=== PATIENT | male | born 1980 | race Caucasian/White ===

== ENCOUNTER 2022-11-20 18:43 | Emergency (ER) | payer BC, SELFPAY ==
[2022-11-20 18:50] VITALS: BP 158/84; PULSE 75; RESP 16; TEMP 36; O2SAT 96
--- NOTE | 2022-11-20 18:55 | ED.URI ---
HPI - URI/Sore Throat General Chief Complaint: Upper Respiratory Infection Stated Complaint: sore throat Time Seen by Provider: 11/20/22 18:50 Source: patient and RN notes reviewed History of Present Illness HPI Narrative: Patient is a 42-year-old male who presents to urgent care with complaints of a sore throat that started last night. Patient denies any fever, nausea, vomiting, headache or other upper respiratory complaints. States that his daughter was diagnosed on Friday. No other acute complaints. Patient has not taken anything [id number] for his symptoms. No acute distress noted. Patient aware of the plan of care. Some parts of this dictation were generated by voice recognition software and may contain typographical and/or grammatical inaccuracies. Related Data Home Medications Medication Instructions Recorded Confirmed No Home Medications 11/20/22 11/20/22 Allergies Allergy/AdvReac Type Severity Reaction Status Date / Time Penicillins Allergy Rash Verified 11/20/22 18:56 Review of Systems Review of Systems: CONSTITUTIONAL: Denies fever, chills, or sweats. EYES: Denies visual changes, redness, or discharge. ENT: Denies rhinorrhea, congestion,. Reports of sore throat CARDIOVASCULAR: Denies chest pain, palpitations, or edema. RESPIRATORY: Denies cough or dyspnea. GASTROINTESTINAL: Denies abdominal pain, nausea, vomiting, or diarrhea. GENITOURINARY: Denies dysuria or hematuria. SKIN: Denies rash or itching. MUSCULOSKELETAL: Denies back pain, joint pain, or myalgia. NEUROLOGIC: Denies headache, numbness, or weakness. All other systems reviewed are negative, except as documented in HPI. PMFSH Comments At the time of my signature, I reviewed and agree with the nursing past medical, surgical, social, and family history. There is no relevant family history pertinent to the patient complaint. Exam Narrative: GENERAL: This is a well-nourished, well-developed patient, in no apparent distress. HEAD: normocephalic, atraumatic. EYES: PERRL. Sclera clear/white. Vision is grossly intact. EARS: External ears normal, auditory canals clear and without drainage, TMs normal without perforation. Hearing grossly intact. NOSE: External nose normal with no obvious nasal discharge, nares without redness, no rhinorrhea. THROAT: Mucous membranes moist, posterior pharynx clear. Mild postnasal drainage NECK: Neck supple, non-tender without lymphadenopathy SKIN: warm, intact with no suspicious lesions or rash, good texture and turgor. NEURO: awake, alert, and oriented to person, place and time. There were no obvious focal neurologic abnormalities. EXTREMITIES: No clubbing, cyanosis, or edema. Course Course Level of Care: Express Care Visit Vital Signs Vital signs: Vital Signs Temperature 96.8 F L 11/20/22 18:50 Pulse Rate 75 11/20/22 18:50 Respiratory Rate 16 11/20/22 18:50 Blood Pressure 158/84 H 11/20/22 18:50 Pulse Oximetry 96 11/20/22 18:50 Oxygen Delivery Room Air 11/20/22 18:50 Temperature 96.8 F L 11/20/22 18:56 Pulse Rate 75 11/20/22 18:56 Respiratory Rate 16 11/20/22 18:56 Blood Pressure 158/84 H 11/20/22 18:56 Pulse Oximetry 96 11/20/22 18:56 Oxygen Delivery Room Air 11/20/22 18:56 Reviewed- Patient is informed that they may have pre-hypertension or hypertension based on a blood pressure reading in the department. I recommend the patient call the primary care provider listed on their discharge instructions or a physician of their choice this week to arrange follow-up for further evaluation of possible pre-hypertension or hypertension. MDM - URI/Sore Throat MDM Narrative Medical decision making narrative: Reviewed lab results with the patient. He is aware that strep swab was negative. Educated patient on culture we will call within 72 hours if culture is positive antibiotics are necessary. Advised patient to use a daily antihistamine such as Claritin or Zyrtec. May
[2022-11-20 18:56] VITALS: BP 158/84; PULSE 75; RESP 16; TEMP 36; O2SAT 96
== END 2022-11-20 19:20 | disposition home or self-care (01) ==
PROVIDERS: Emergency Provider Nurse Practitioner Family
DX: J02.9 Acute pharyngitis, unspecified (principal)
CPT/HCPCS: 87081; 87880; 99213; G0463

== ENCOUNTER 2022-12-02 20:15 | Observation (INO) | payer BC, SELFPAY ==
[2022-12-02] VITALS (13 sets, daily range): BP systolic 136–156; BP diastolic 80–101; PULSE 54–79; RESP 14–27; TEMP 36.4–36.5; O2SAT 95–98
--- NOTE | ~2022-12-02 | US_ITS ---
EXAMINATION: US carotid duplex BI DATE: 12/03/2022 12:29 INDICATION: Near syncope. TECHNIQUE: Grayscale, color Doppler, and pulsed Doppler images of the cervical carotid arteries were obtained. The degree of vessel stenosis is placed in one of the following categories: normal, <50%, 5 0-69%, >=70% but less than near-occlusion, near-occlusion, or total occlusion. Note that percent sten osis relative to normal distal artery lumen diameter is indirectly measured from velocity measurement s as described by Shoaib, et al. Radiology 2003; 229:340-346. COMPARISON: None. FINDINGS: RIGHT: The right common carotid artery (CCA) peak systolic velocity (PSV) is 97 cm/s. The right internal car otid artery (ICA) PSV is 70 cm/s. The right ICA end-diastolic velocity (EDV) is 32 cm/s. The right IC A/CCA PSV ratio is 0.7. Grayscale and color Doppler images yield an estimate of <50% diameter reducti on from plaque in the ICA. There is antegrade flow in the right vertebral artery. LEFT: The left CCA PSV is 95 cm/s. The left ICA PSV is 67 cm/s. The left ICA EDV is 32 cm/s. The left ICA/C CA PSV ratio is 0.7. Grayscale and color Doppler images yield an estimate of <50% diameter reduction from plaque in the ICA. There is antegrade flow in the left vertebral artery. IMPRESSION: 1. <50% stenosis in the right internal carotid artery. 2. <50% stenosis in the left internal carotid artery. Reviewed, dictated and finalized at location A.
--- NOTE | ~2022-12-02 | CT_ITS ---
EXAMINATION: CTA chest PE protocol DATE: 12/02/2022 21:47 INDICATION: Shortness of breath TECHNIQUE: Computed tomography angiography (CTA) of the chest was performed with 100 mL Omnipaque-350 intravenous contrast timed to evaluate the pulmonary arteries. Coronal maximum intensity projection 3D-reconstructions were created by the technologist. The dose-length product (DLP) was 797.56 mGy-cm. Automated exposure control and iterative reconstruction technique were employed. COMPARISON: None. FINDINGS: The pulmonary arteries are well-opacified. No pulmonary embolism is identified. There is mi ld dependent atelectasis of the lungs. No pleural effusion or pneumothorax. No pathologically enlarge d thoracic lymph nodes are identified. The heart size is normal. There are calcifications of aortic v alve. Gynecomastia is noted. There is mild thoracic spondylosis. IMPRESSION: 1. No pulmonary embolus identified. 2. Aortic valve calcifications. Reviewed, dictated and finalized at location F.
--- NOTE | ~2022-12-02 | MR_ITS ---
EXAMINATION: MR brain/brain stem wo con DATE: 12/03/2022 12:04 INDICATION: Near syncope. TECHNIQUE: Magnetic resonance imaging (MRI) of the brain and brainstem was performed without intraven ous contrast. COMPARISON: Head CT 12/02/2022 FINDINGS: There is no intracranial hemorrhage, acute infarction, or abnormal intracranial mass lesion . The ventricles are normal in size. There is mucosal thickening in the paranasal sinuses. The orbits are normal. The mastoid air cells are normal. IMPRESSION: 1. Normal brain. Reviewed, dictated and finalized at location A. IMPRESSION: 1. Normal brain.
--- NOTE | ~2022-12-02 | CT_ITS ---
EXAMINATION: CT brain wo con INDICATION: Dizziness and blurry vision COMPARISON: None TECHNIQUE: Standard unenhanced head CT. The dose-length product (DLP) was 605.33 mGy-cm. The mA was a djusted according to patient size. Iterative reconstruction technique was employed. FINDINGS: There is no intracranial hemorrhage, acute infarction, or abnormal mass lesion. The ventric les are normal. There is no abnormal mass effect or midline shift. The roman-white matter differentiat ion is normal. The basal cisterns are patent. The orbits are normal. There is near complete opacifica tion of the left sphenoid sinuses. There is mucosal thickening of the ethmoidal air cells and right s phenoid sinus. The frontal sinuses are hypoplastic. The mastoid air cells are clear. IMPRESSION: 1. No acute intracranial abnormality. 2. Sinus disease. Reviewed, dictated and finalized at location F.
--- NOTE | ~2022-12-02 | XR_ITS ---
EXAMINATION: XR chest 1V INDICATION: Shortness of breath and dizziness TECHNIQUE: AP view of the chest is obtained. COMPARISON: None available FINDINGS: There is mild atelectasis. No pleural effusion or pneumothorax. The cardiomediastinal silho uette is normal. IMPRESSION: 1. Mild atelectasis Reviewed, dictated and finalized at location F. IMPRESSION: 1. Mild atelectasis
--- NOTE | 2022-12-02 20:37 | ECG_ITS ---
Measurements Intervals [place] Rate: 67 P: 34 NH: 161 QRS: 61 QRSD: 101 T: -58 QT: 382 QTc: 404 Interpretive Statements SINUS RHYTHM ST-T WAVE ABNORMALITY IN INF/LAT LEADS- CONSIDER ISCHEMIA BASELINE ARTIFACT- I, AVL ABNORMAL ECG NO PREVIOUS ECG AVAILABLE FOR COMPARISON Electronically Signed On 12-02-2022 21:48:00 CDT by Carlos Greene D.O.
[2022-12-02] MEDS: SODIUM CHLORIDE 0.9% IV 1,000 ML 999 ML IV CONT (21:17)
[2022-12-02] MEDS: PROCHLORPERAZINE EDISYLATE 10 MG/2 ML VIAL IV PUSH (21:18)
[2022-12-02 21:20] LABS: Basophils Percent Auto 0.5 % (0.2-1.2); Eosinophils Absolute Auto 0.3 K/mm3 (0-0.3); Eosinophils Percent Auto 3.4 % (0-4.4); Hematocrit 44.6 % (42.0-52.0); Hemoglobin 14.6 g/dL (14.0-18.0); Immature Granulocyte Absolute 0.01 K/mm3 (0.00-0.031); Immature Granulocyte Percent A 0.1 % (0-0.5); Lymphocytes Absolute Auto 1.45 K/mm3 (0.9-3.2); Mean Corpuscular HGB Conc 32.7 g/dl (32-36); Mean Corpuscular Hemoglobin 26.4 pg (26-34); Mean Corpuscular Volume 80.7 fl (80-100); Monocytes Absolute Auto 0.8 K/mm3 (0.1-0.6); Monocytes Percent Auto 10.9 % (2.6-8.5); Neutrophils Percent Auto 66.1 % (45.5-73.1); Platelet Count Result 271 k/mm3 (150-375); Red Blood Count 5.53 M/mm3 (4.6-6.20); White Blood Count 7.6 K/mm3 (4.5-10.0)
[2022-12-02] MEDS: BENZONATATE 100 MG CAPSULE 200 MG PO (21:20)
[2022-12-02 21:30] LABS: INR 1.2; Prothrombin Time 14.4 Seconds (11.1-14.7)
[2022-12-02 21:31] LABS: Alanine Aminotransferase 95 U/L (6-50); Albumin Level 4.6 g/dL (3.5-5.1); Alkaline Phosphatase 38 U/L (38-126); Anion Gap 8 mmol/L (8-16); Aspartate Amino Transferase 61 U/L (17-59); Bilirubin,Total 0.5 mg/dL (0.2-1.3); Blood Urea Nitrogen 18 mg/dL (9-20); Calcium 9.3 mg/dL (8.4-10.2); Carbon Dioxide 30 mmol/L (22-30); Chloride 100 mmol/L (98-107); Estimated CRCL calculation 77 ml/min; Estimated Glomerular Filt Rate > 60; Glucose 99 mg/dL (65-110); Partial Thromboplastin Time 26.2 SECONDS (22.3-36.8); Potassium 3.9 mmol/L (3.4-5.0); Sodium 138 mmol/L (137-145)
[2022-12-02 22:09] LABS: Appearance Urine Clear (Clear); Bilirubin Urine Negative (Negative); Blood Urine Negative (Negative); Color Urine Yellow (Yellow); Glucose Urine UA Negative (Negative); Ketones Urine Negative (Negative); Leukocyte Esterase Ur Negative LEU/UL (Negative); Nitrate Urine Negative (Negative); Protein Urine Negative (Negative); Urobilinogen Urine 0.2 mg/dL (<2.0)
[2022-12-02 22:19] LABS: Add Urine Microscopic? NO; Specific Grav Ur 1.053 (1.001-1.035)
[2022-12-02 23:08] LABS: NT Pro B Type Natriuretic Pept 70 pg/mL (19.9-100)
--- NOTE | 2022-12-02 23:45 | PM.IMHP ---
H&P: HPI History of Present Illness Date/Time: 12/02/22 23:45 Chief Complaint: NEAR-SYNCOPE Narrative: This is a 42-year-old male with known significant past medical history presents to the emergency room after he was having a strenuous versus size with his 10-year-old daughter running in the yd when he felt like passing out was having profuse diaphoresis and had near syncopal episode denies chest pain patient has been his usual state of health prior to these denies any focal sensorimotor weakness, no leg swelling, no palpitations, on auscultation patient had a persistent murmur and when I inquired stated that he has had that since . Preliminary workup was significant for elevated troponins. Patient is been admitted for further evaluation, management, treatment. Chest x-ray was reported as: FINDINGS: There is mild atelectasis. No pleural effusion or pneumothorax. The cardiomediastinal silhouette is normal. IMPRESSION: 1. Mild atelectasis CT angiogram of the chest was reported as: COMPARISON: None. FINDINGS: The pulmonary arteries are well-opacified. No pulmonary embolism is identified. There is mild dependent atelectasis of the lungs. No pleural effusion or pneumothorax. No pathologically enlarged thoracic lymph nodes are identified. The heart size is normal. There are calcifications of aortic valve. Gynecomastia is noted. There is mild thoracic spondylosis. IMPRESSION: 1. No pulmonary embolus identified. 2. Aortic valve calcifications. Head CT was reported as; FINDINGS: There is no intracranial hemorrhage, acute infarction, or abnormal mass lesion. The ventricles are normal. There is no abnormal mass effect or midline shift. The roman-white matter differentiation is normal. The basal cisterns are patent. The orbits are normal. There is near complete opacification of the left sphenoid sinuses. There is mucosal thickening of the ethmoidal air cells and right sphenoid sinus. The frontal sinuses are hypoplastic. The mastoid air cells are clear. ? IMPRESSION: 1. No acute intracranial abnormality. 2. Sinus disease. Review of Systems Review of Systems: Near-syncope while running profuse diaphoresis Constitutional: Constitutional: Denies chills, Denies fatigue, Denies fever(s), Denies lethargy, Denies malaise, Denies night sweats and Denies weakness Eyes: Eyes: Reports blurry vision and Reports other (Subconjunctival hemorrhage) ENT: Denies dysphagia and Denies odynophagia Cardiovascular: Cardiovascular: Denies chest pain, Reports lightheadedness and Reports other (Near-syncope) Respiratory: Respiratory: Denies chest congestion, Denies cough, Denies excessive phlegm production, Denies pain on inspiration and Denies dyspnea Gastrointestinal: Gastrointestinal: Denies abdominal pain, Denies dyspepsia, Denies heartburn, Denies diarrhea, Denies nausea and Denies vomiting Genitourinary: Genitourinary: Denies dysuria Musculoskeletal: Musculoskeletal: Denies back pain, Denies joint swelling and Denies muscle weakness Integumentary/Breasts: Skin/Breast: Denies rash Neurologic: Denies focal weakness and Denies Sensory deficit (Neuro) Psychiatric: Psychiatric: Reports no additional psychiatric complaints and Reports as per HPI Endocrine: Endocrine: Denies cold intolerance, Denies flushing, Denies heat intolerance, Denies polyphagia, Denies polydipsia and Denies palpitations Hematologic/Lymphatic: Hematologic/Lymphatic: Reports no additional hematologic/lymphatic complaints and Reports as per HPI Allergic/Immunologic: Allergic/Immunologic: Reports no additional allergic/immunologic complaints and Reports as per HPI Meds Home Medications and Allergies Home Medications Medication Instructions Recorded Confirmed Type No Home Medications 11/20/22 11/20/22 History Allergies Allergy/AdvReac Type Severity Reaction Status Date / Time Penicillins Allergy Rash Verified 12/02/22 20:37 Vital Signs Vital Signs - 24 hr
--- NOTE | 2022-12-02 23:51 | ED.GENADULT ---
HPI - General Adult General Chief complaint: Dizziness Stated complaint: dizziness with SOB Time Seen by Provider: 12/02/22 20:55 History of Present Illness HPI narrative: Patient 42-year-old gentleman who presents emerged department with chief complaint of headache and shortness of breath. The patient states that he had sudden onset of a feeling of shortness of breath in his chest and reports that he also had a headache with blurry vision patient reports that the symptoms or not improved by anything patient reports no illicit substance use reports no other past medical history. Related Data Home Medications Medication Instructions Recorded Confirmed No Home Medications 11/20/22 11/20/22 Allergies Allergy/AdvReac Type Severity Reaction Status Date / Time Penicillins Allergy Rash Verified 12/02/22 20:37 Review of Systems Review of Systems: A 10 system review of systems was completed on the patient and is negative except for what is stated in the HPI. Nursing and ancillary documentation was reviewed. Exam Narrative: GENERAL: Well-appearing, well-nourished, and in no acute distress. HEAD: Normocephalic, atraumatic. EYES: PERRLA and EOMI. injected conjunctiva ENT: Nares clear, no rhinorrhea or epistaxis. Mucous membranes moist. NECK: Supple. CHEST: Clear to auscultation. No respiratory distress. HEART: Regular rate and rhythm. No murmur heard. Normal peripheral pulses. ABDOMEN: Soft, nontender, nondistended, normal active bowel sounds. EXTREMITIES: Normal range of motion. No edema. SKIN: Warm, dry, no rash. NEURO: No focal deficits. Alert and oriented x3. PSYCH: Normal mood and affect. Course Vital Signs Vital signs: Vital Signs Temperature 36.5 C 12/02/22 20:33 Pulse Rate 73 12/02/22 20:33 Respiratory Rate 16 12/02/22 20:33 Blood Pressure 142/80 H 12/02/22 20:33 Pulse Oximetry 97 12/02/22 20:33 Oxygen Delivery Room Air 12/02/22 20:33 Temperature 36.4 C 12/02/22 21:05 Pulse Rate 54 L 12/02/22 23:02 Respiratory Rate 21 H 12/02/22 23:02 Blood Pressure 138/96 H 12/02/22 23:02 Pulse Oximetry 96 12/02/22 23:02 Oxygen Delivery Room Air 12/02/22 20:33 Medical Decision Making MDM Narrative Medical decision making narrative: Differential diagnosis includes ACS, migraine, PE, electrolyte abnormality, infection, Laboratory studies were obtained which showed a troponin of 0.070 Electrolytes are within normal limits CBC was within normal limits lactic acid is normal. CTA was obtained of the chest as well as CT head that showed no evidence of acute abnormalities. EKG interpreted by me as sinus rhythm rate of [address] elevation or ST depression, there is LVH present on the EKG Vital Signs Vital Signs: Vital Signs Temperature 36.5 C 12/02/22 20:33 Pulse Rate 73 12/02/22 20:33 Respiratory Rate 16 12/02/22 20:33 Blood Pressure 142/80 H 12/02/22 20:33 Pulse Oximetry 97 12/02/22 20:33 Oxygen Delivery Room Air 12/02/22 20:33 Temperature 36.4 C 12/02/22 21:05 Pulse Rate 54 L 12/02/22 23:02 Respiratory Rate 21 H 12/02/22 23:02 Blood Pressure 138/96 H 12/02/22 23:02 Pulse Oximetry 96 12/02/22 23:02 Oxygen Delivery Room Air 12/02/22 20:33 Lab Data 12/02/22 21:14 12/02/22 21:14 Labs: Lab Results 12/02/22 12/02/22 12/02/22 Range/Units 21:14 21:14 21:14 WBC 7.6 (4.5-10.0) K/mm3 RBC 5.53 (4.6-6.20) M/mm3 Hgb 14.6 (14.0-18.0) g/dL Hct 44.6 (42.0-52.0) % MCV 80.7 (80-100) fl MCH 26.4 (26-34) pg MCHC 32.7 (32-36) g/dl RDW 16.0 H (11.5-14.5) % Plt Count 271 (150-375) k/mm3 MPV 11.0 H (7.4-10.4) fl Immature Gran % (Auto) 0.1 (0-0.5) % Neut % (Auto) 66.1 (45.5-73.1) % Lymph % (Auto) 19.0 (18.3-44.2) % [place] % (Auto) 10.9 H (2.6-8.5) % Eos % (Auto) 3.4 (0-4.4) % Baso % (Auto) 0.5 (0.2-1.2) % Lymph # (Auto) 1.4
[2022-12-03] VITALS (18 sets, daily range): BP systolic 108–149; BP diastolic 63–85; PULSE 52–91; RESP 12–20; TEMP 36.2–36.7; O2SAT 91–100; BMI 29.5
--- NOTE | 2022-12-03 | ECHO_ITS ---
Patient Info Name: Narinder Brown Age: 42 years : 1980 Gender: Male Ht: 69 in Wt: 200 lbs BSA: 2.12 m2 HR: 63 bpm BP: 117 / 79 mmHg Heart Rhythm: Sinus Rhythm Exam Date: 12/03/2022 7:50 AM Exam Location: [facility] Patient Status: Outpatient Admit Date: 12/02/2022 Staff Ordering Physician: Elijah Cruz MD Law Tutor: Ap Arana, CARMEN, RT Attending Provider: Elijah Cruz MD Referring Physician: Anthony RIBERA; Exam Type: CA echo doppler color flow Study Info Indications - Transient shortness of breath - Near syncope Complete two-dimensional, color flow and Doppler transthoracic echocardiogram is performed. Strain analysis performed. Summary 1. Complete two-dimensional, color flow and Doppler transthoracic echocardiogram is performed. 2. Normal left ventricular size with moderately severe left ventricular hypertrophy. Good systolic function of all segments. Ejection fraction is 60-65%. Grade 2 diastolic dysfunction is present. Global longitudinal strain is normal at -20%. 3. Left atrial chamber dimension is mildly enlarged. 4. There is critical aortic valve stenosis with a peak velocity of 4.92 m/s, peak gradient of 93 mmHg, mean gradient of 63 mmHg, and aortic valve area of 0.7 cm2. Severe aortic valve calcification. Valve morphology not well visualized. 5. Minimal dilatation of the ascending aorta. Sinus of Valsalva 3.0 cm and ascending aorta 2.8 cm in diameter. 6. Pulmonary pressure could not be estimated this study. . 7. Normal sinus rhythm. Left Ventricle Left ventricular chamber dimension is normal. Left ventricular systolic function is normal, estimated at 60-65%. There is moderately increased left ventricular wall thickness. Left ventricular septal wall motion is normal. The left ventricular diastolic function is grade II diastolic dysfunction. Global longitudinal strain is normal at -20 %. Right Ventricle Right ventricular chamber dimension is normal. Right ventricular systolic function is normal. Left Atria Left atrial chamber dimension is mildly enlarged. Right Atria Right atrial chamber dimension is normal. Aortic Valve The aortic valve is not well visualized. There is no aortic valve sclerosis. There is critical aortic valve stenosis with a peak velocity of 4.92 m/s, peak gradient of 93 mmHg, mean gradient of 63 mmHg, and aortic valve area of 0.7 cm2. Severe aortic valve calcification. Valve morphology not well visualized. There is no aortic valve regurgitation. There is severe aortic valve calcification. Pulmonic Valve The pulmonic valve is normal. There is no pulmonic valve stenosis. There is trace pulmonic regurgitation. Mitral Valve The mitral valve has normal leaflets. There is no mitral valve stenosis. There is trace mitral valve regurgitation. Tricuspid Valve The tricuspid valve leaflets are normal. There is no significant tricuspid valve stenosis. There is trace tricuspid valve regurgitation. Pulmonary pressure could not be estimated this study. Pericardium/Pleural The pericardium appears normal. There is no pericardial effusion. Inferior Vena Cava Normal inferior vena cava with >50% collapse upon inspiration consistent with Empty right atrial pressure, 10 mmHg. Aorta The aortic root size at the sinus of Valsalva is normal. The prox ascending aorta size is normal. Left Ventricular Outflow Tract
[2022-12-03] MEDS: ASPIRIN 81 MG CHEWABLE TABLET 324 MG PO (00:21)
[2022-12-03 01:23] LABS: Troponin I 0.187 ng/mL (0.000-0.034)
[2022-12-03 04:35] LABS: Troponin I 0.165 ng/mL (0.000-0.034)
[2022-12-03 05:13] LABS: Basophils Percent Auto 0.3 % (0.2-1.2); Eosinophils Absolute Auto 0.2 K/mm3 (0-0.3); Eosinophils Percent Auto 2.1 % (0-4.4); Hematocrit 44.4 % (42.0-52.0); Hemoglobin 14.4 g/dL (14.0-18.0); Immature Granulocyte Absolute 0.04 K/mm3 (0.00-0.031); Immature Granulocyte Percent A 0.4 % (0-0.5); Lymphocytes Absolute Auto 1.75 K/mm3 (0.9-3.2); Lymphocytes Percent Auto 15.6 % (18.3-44.2); Mean Corpuscular HGB Conc 32.4 g/dl (32-36); Mean Corpuscular Hemoglobin 25.9 pg (26-34); Mean Corpuscular Volume 79.7 fl (80-100); Mean Platelet Volume 10.8 fl (7.4-10.4); Monocytes Percent Auto 8.6 % (2.6-8.5); Neutrophils Absolute Auto 8.2 K/mm3 (1.3-6.7); Platelet Count Result 266 k/mm3 (150-375); Red Blood Count 5.57 M/mm3 (4.6-6.20); White Blood Count 11.2 K/mm3 (4.5-10.0)
[2022-12-03 05:28] LABS: Alanine Aminotransferase 90 U/L (6-50); Albumin Level 4.3 g/dL (3.5-5.1); Alkaline Phosphatase 38 U/L (38-126); Anion Gap 7 mmol/L (8-16); Aspartate Amino Transferase 73 U/L (17-59); Bilirubin,Total 0.6 mg/dL (0.2-1.3); Blood Urea Nitrogen 14 mg/dL (9-20); Calcium 8.9 mg/dL (8.4-10.2); Carbon Dioxide 26 mmol/L (22-30); Chloride 104 mmol/L (98-107); Estimated CRCL calculation 84 ml/min; Estimated Glomerular Filt Rate > 60; Glucose 98 mg/dL (65-110); Potassium 4.1 mmol/L (3.4-5.0); Sodium 137 mmol/L (137-145)
--- NOTE | 2022-12-03 06:15 | ADMGEN ---
This patient, Narinder Brown, was admitted to IMU Room 213-01 at 0500. Patient/family oriented to hospital policies and general routines including ID bracelet, bed and alarms, visiting hours, pain management, procedures, bathroom and other care routines, personal items, smoking policy, room service/diet, and visiting hours. Information on how to activate the Rapid Response Team has been discussed. Patient/Family are encouraged to report perceived risks to care and to ask questions if they do not understand what they are told or what they should do.
[2022-12-03] MEDS: ASPIRIN 81 MG CHEWABLE TABLET PO (09:00)
--- NOTE | 2022-12-03 10:45 | PM.CNCAR ---
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 Minimal involvement of the ascending aorta. He was very symptomatic yesterday after some exertion. He has still normal left ventricular systolic function but has developed diastolic dysfunction. He needs aortic valve replacement. This was discussed extensively with the patient and his . The patient was told he could have progressive heart dysfunction, and there is a risk of sudden cardiac with critical aortic stenosis. He was advised not to exercise or strenuously exert. Patient has done some reading on aortic valve replacements. He is wondering if he could get a TAVR valve. For young people, we want the best valve with the best valve area and I recommend surgical aortic valve replacement. I reviewed the durability of the mechanical mitral valves (with the caveat that anticoagulation is needed) verses a bioprosthetic valve. I recommend a cardiac catheterization (which can be done tomorrow) and follow up with a cardiothoracic surgeon in the near future. Probably should do a CT of his aorta some point as well. Pt desires to consider this and discuss w/ his . (2) Near syncope: Code(s): R55 - Syncope and collapse Status: Acute Assessment and Plan: Patient had prolonged dyspnea, near syncope and dizziness yesterday after exertion due to his critical aortic stenosis. So far no significant arrhythmias although the patient is mildly bradycardic. (3) Elevated troponin: Code(s): R77.8 - Other specified abnormalities of plasma proteins Status: Acute Assessment and Plan: Elevated troponin is most likely due to his critical aortic stenosis with superimposed exertion. He could have some underlying CAD although not likely. He does have some T-wave inversion inferior laterally which may be from the LVH. I will repeat an EKG to see if there is any change today. (4) Non-traumatic subconjunctival hemorrhage of both eyes: Status: Acute Assessment and Plan: The patient has bilateral subconjunctival hemorrhages. Not usually associated with aortic stenosis unless there is endocarditis. The patient does not clinically have endocarditis but will check blood cultures. (5) Elevated LFTs: Code(s): R79.89 - Other specified abnormal findings of blood chemistry Status: Acute Assessment and Plan: Patient noted to have mildly elevated liver function tests. Etiology uncertain. History of Present Illness History of Present Illness Consult date/time: 12/03/22 10:45 Reason For Visit: Dyspnea, Elevated Troponin Narrative: Wilbur Brown is a 41-year-old male who has had a murmur since childhood and was diagnosed as having aortic stenosis in his 20s. He tells me he has a 4 leaflet valve. We were asked to see him at the request of Dr. Haynes for advice and opinion regarding his near syncopal episode and heart murmur. Mr. Granado has noted that he is getting older, not in as good a shape is a used to be, with some progressive MCKINNEY. He gets winded after wrestling with his sons for five or 10 minutes. Yesterday he was playing basketball with his 10-year-old daughter and he suddenly felt very lightheaded and presyncopal, short of breath and profusely diaphoretic. There was no chest discomfort. He sat down but still felt poorly and had to go in house on lie down. His found him this way, became alarmed particularly since he had subconjunctival hemorrhages and seemed out of it. She called an ambulance and he was brought to the hospital. His troponins were elevated, up to 0.165. He has been stable since admission w/o further sx. The patient was
--- NOTE | 2022-12-03 12:32 | ECG_ITS ---
Measurements Intervals [place] Rate: 73 P: 44 OR: 148 QRS: 64 QRSD: 101 T: -86 QT: 389 QTc: 430 Interpretive Statements SINUS RHYTHM ST-T WAVE ABNORMALITY IN ANTEROLAT/INF LEADS- CONSIDER ISCHEMIA ABNORMAL ECG COMPARED TO ECG 12/02/2022 21:18:57 NO SIGNIFICANT CHANGES Electronically Signed On 12-03-2022 15:42:51 CDT by Carlos Greene D.O.
--- NOTE | 2022-12-03 12:57 | PM.IMPN ---
Progress Note: A&P Assessment and Plan (1) Near syncope: Code(s): R55 - Syncope and collapse Status: Acute Assessment and Plan: Patient with persistent murmur at auscultation Echocardiogram in a.m. Cardiology consult CT OF THE HEAD REVIEWED Carotid Dopplers in a.m. MRI of the brain and brainstem in a.m. (2) Acute dyspnea: Code(s): R06.00 - Dyspnea, unspecified Status: Acute Assessment and Plan: With exertion History of congenital murmur (3) Elevated troponin: Code(s): R77.8 - Other specified abnormalities of plasma proteins Status: Acute Assessment and Plan: CHEST PAIN-FREE CONTINUE TO TREND TROPONINS NO ACUTE EKG CHANGES Cardiology consult (4) Non-traumatic subconjunctival hemorrhage of both eyes: Status: Acute Assessment and Plan: PLEURITIC IN THE EYE TEARS Subjective Date/time seen: 12/03/22 12:57 No complaints Exam Narrative: Well-appearing Const: General: comfortable, no acute distress, well developed, alert, awake and average body habitus Nutritional Appearance: average body habitus Orientation/consciousness: patient oriented x3 HENMT: Head: normal to inspection, normocephalic and atraumatic Ears: hearing grossly normal bilaterally Face/Nose/Sinus: normal facial exam Face and sinus: normal facial exam Eyes: General: appearance normal, both eyes and all related structures Pupils: Equal, round and reactive pupils present EOM: EOMs intact bilaterally Neck: Neck: full ROM, no lymphadenopathy and no JVD Thyroid: thyroid normal Lymphatic: no lymphadenopathy noted Resp: Effort & Inspection: normal respiratory effort and able to speak in complete sentences Auscultation: clear to auscultation bilaterally Cardio: Jugular venous distension: no JVD Rate: regular rate Rhythm: regular rhythm Heart sounds: S1 normal heart sound present, S2 normal heart sound present and Murmur heart sound present continuous IV/ : General: Yes deferred Skin: Rashes: no rashes Wounds: no wounds Neuro: General: patient oriented x3 and CN's II-XI intact bilaterally Cranial nerves: Yes CN's II-XII intact bilaterally and Yes Equal, round and reactive pupils present Cognition (Neuro): normal cognition Speech: normal speech Gait exam (Neuro): Normal gait present Motor exam (neuro): 5/5 motor strength present throughout Sensory Exam: No Sensory deficit (Neuro) Extrem: General: normal to inspection, full ROM, no joint enlargement and no pedal edema Objective Data Vital Signs Vital Signs: Vital Signs - 24 hr 12/02/22 20:33 12/02/22 21:04 12/02/22 21:05 Temperature 97.7 F 97.6 F Pulse Rate 73 79 77 Respiratory Rate 16 17 Blood Pressure 142/80 H 156/101 H Pulse Oximetry 97 98 Oxygen Delivery Room Air 12/02/22 21:28 12/02/22 21:29 12/02/22 21:30 Temperature Pulse Rate 69 78 77 Respiratory Rate Blood Pressure 140/85 137/92 H 142/96 H Pulse Oximetry Oxygen Delivery 12/02/22 22:05 12/02/22 23:02 12/02/22 21:54 Temperature Pulse Rate 69 54 L 68 Respiratory Rate 18 21 H 16 Blood Pressure 144/80 H 138/96 H Pulse Oximetry 96 96 96 Oxygen Delivery 12/02/22 22:01 12/02/22 22:15 12/02/22 22:31 Temperature Pulse Rate 72 62 62 Respiratory Rate 15 14 15 Blood Pressure 136/91 H Pulse Oximetry 97 97 95 Oxygen Delivery 12/02/22 23:01 12/03/22 00:08 12/03/22 00:34 Temperature Pulse Rate 70 63 52 L Respiratory Rate 27 H 16 15 Blood Pressure 138/96 H 130/82 136/80 Pulse Oximetry 96 96 96 Oxygen Delivery 12/03/22 01:52 12/03/22 02:26 12/03/22 03:34 Temperature Pulse Rate 55 L 52 L 53 L Respiratory Rate 14 13 13 Blood Pressure 117/73 118/70 108/80 Pulse Oximetry 97 97 98 Oxygen Delivery 12/03/22 04:43 12/03/22 05:00 12/03/22 06:00 Temperature 98.0 F Pulse Rate 54 L 62 54 L Respiratory Rate 12 20 20 Blood Pressure 126/72 117/79 Pulse Oximetry 99 99 99 Oxygen Delivery
[2022-12-04] VITALS (18 sets, daily range): BP systolic 105–139; BP diastolic 55–87; PULSE 50–84; RESP 14–20; TEMP 35.9–36.6; O2SAT 96–100
[2022-12-04] MEDS: ASPIRIN 81 MG CHEWABLE TABLET PO (08:45)
[2022-12-04] MEDS: SODIUM CHLORIDE 0.9% IV 500 ML 100 ML IV CONT (08:48)
--- NOTE | 2022-12-04 08:49 | P.HPUP_ITS ---
History and Physical Update Update Date/Time: 12/04/22 08:49 History and Physical has been reviewed, including an updated exam of the patient. There are NO changes in the patient's condition. Follow-up EKG did not show any evolution of the changes, which I suspect are from LVH not ACS. Risks, benefits, and alternatives have been discussed and questions answered. Reviewed possible risks and complications with patient including breathing problems, bleeding problems, blood vessel problems, unanticipated surgery, allergic reactions, kidney problems, CVA, IL, and among others. Discussed possibility of stenting -- which I think is unlikely. Patient understands risks and desires to proceed. Patient was initially concerned that he did not want to stay overnight again, although I think that will be an unlikely possibility. I offered the patient to simply see his former animal laboratory helper in [place] and get the cardiac catheterization done there in preparation for AVR, but he decided to proceed with catheterization today at [facility]. He has not yet contacted his former animal laboratory helper for an appointment, which I have again urged him to do MARISA.
[2022-12-04] MEDS: ARTIFICIAL TEARS OPHTH SOLN 15 ML BOTTLE 1 DROP EACH EYE ×2 (08:52→14:49)
--- NOTE | 2022-12-04 08:53 | WPDMODSED ---
Moderate Sedation Note-Pt Data Patient Data Diagnosis: Severe , elevated troponins Present Complaint: Severe , elevated troponins Procedure to be performed/Plan: Conscious sedation Left heart cath Allergies Allergy/AdvReac Type Severity Reaction Status Date / Time Penicillins Allergy Rash Verified 12/02/22 20:37 Home Medications Medication Instructions Recorded Confirmed Type No Home Medications 11/20/22 12/03/22 History Current Medications: Active Medications Artificial Tears (Artificial Tears Ophth Soln 15 Ml Bottle) 1 drop EACH EYE QID PRN PRN Reason: Dry Eye(s) Aspirin (Aspirin 81 Mg Chewable Tablet) 81 mg PO DAILY@0800 [facility] Last Admin: 12/04/22 08:45 Dose: 81 mg Sodium Chloride (Normal Saline Iv) 500 mls @ 100 mls/hr IV CONT .Q5H [facility] Last Admin: 12/04/22 08:48 Dose: 100 mls/hr Perflutren Lipid Microsphere (Perflutren Lipid Microspheres 1.5 Ml Vial Diluted To 10 Ml Total Volume) 0 ml IV PUSH ONCE PRN; Protocol PRN Reason: adequate visualization Stop: 12/05/22 03:27 Sedation/Anesthesia: No previous sedation/anesthesia problems (including family history). [facility] Past Medical History Medical History Aortic stenosis Surgical History Surgical History H/O skin graft Family History Family History Mother Alive and well Father Heart disease Possible heart disease Mental health disorder Grandparent Heart disease Paternal grandfather had CABG when young, perhaps in his 30's. Social History Social History Smoking status: Former smoker Alcohol intake: current Substance use: never Lack of Transportation: No Lack of Food: Never True Current Housing: I Have Housing Concerned About Future Housing: No Difficulty Paying Gas/Electric Bills: No Difficulty Paying for Meds: No Currently Unemployed: No Education: Decline to Answer Difficulty w/ Childcare or Family Care: No Spiritual care concerns: No Mod Sed Physical Exam Physical Exam Pre Procedural Exam: Normal: Appearance, Ears, Nose, Neck, Throat, Airway, Lungs, Heart Size, Heart Rate, Heart Rhythm (4/6 BERENICE), Neuro Exam, Abdomen, Liver, Extremities (Good right radial, good Robert's test, intact pedal pulses) and Skin and Variation: Eyes (conjunctival hemorrhages) Hours since solid foods: 12 Hours since liquid intake: 12 Mallampati Classification: class II Internal Medicine - PN: Obj Da Vital Signs Vital Signs: Vital Signs - 24 hr 12/03/22 12:56 12/03/22 12:00 12/03/22 10:00 Temperature 97.2 F L Pulse Rate 91 58 L Respiratory Rate 16 Blood Pressure 139/84 Pulse Oximetry 91 100 Oxygen Delivery Room Air 12/03/22 16:00 12/03/22 16:00 12/03/22 16:00 Temperature 98.1 F Pulse Rate 67 69 Respiratory Rate 16 Blood Pressure 149/65 H Pulse Oximetry 100 99 Oxygen Delivery Room Air 12/03/22 19:54 12/03/22 18:00 12/03/22 20:00 Temperature 97.9 F Pulse Rate 69 70 77 Respiratory Rate 18 Blood Pressure 149/85 H Pulse Oximetry 98 Oxygen Delivery 12/03/22 22:00 12/03/22 23:26 12/04/22 04:00 Temperature 98.0 F 97.8 F Pulse Rate 69 64 76 Respiratory Rate 20 18 Blood Pressure 139/63 131/57 L Pulse Oximetry 97 99 Oxygen Delivery 12/04/22 00:00 12/04/22 02:00 12/04/22 04:00 Temperature Pulse Rate 60 55 L 50 L Respiratory Rate Blood Pressure Pulse Oximetry Oxygen Delivery 12/04/22 06:00 12/04/22 08:00 Temperature 97.8 F Pulse Rate 71 54 L Respiratory Rate 16 Blood Pressure 135/78 Pulse Oximetry 100 Oxygen Delivery Intake/Output Intake/Output: Intake & Output 12/01/22 12/02/22 12/03/22 12/04/22 23:59 23:59 23:59 23:59 Intake Total 1000 480 450 Output Total 1100 [place]
--- NOTE | 2022-12-04 10:30 | PM.OP ---
Procedure Note - Brief Procedure Note - Brief Date of procedure: 12/04/22 Pre-op diagnosis: Dyspnea, Elevated Troponin Aortic stenosis Post-op diagnosis: Same Procedure performed: Conscious sedation Left heart cath Description of procedure: Uneventful left heart cath (coronaries only) via right radial approach Surgeon: Molly Hurst MD Complications: None Condition: Stable Disposition: Observation Findings: Normal coronary arteries Calcified aortic valve
--- NOTE | 2022-12-04 10:32 | P.OP_ITS ---
Procedure Note - Detailed Date of Procedure 12/04/22 Pre-op Diagnosis Dyspnea, Elevated Troponin, critical aortic stenosis Post-op Diagnosis Same Procedure Performed Conscious sedation Coronary angiography Surgeon Molly Hurst MD Anesthesia Local (with conscious sedation) Indications 42-year-old male with known congenital aortic valve disease who has not seen a spice mixer for a few years, presents with severe shortness of breath, diaphoresis and presyncope after exertion and elevated troponins. He has been found to have critical aortic stenosis. Echo showed moderately severe LVH, EF 60-65%, diastolic dysfunction, critical with a peak velocity of 4.9 M/ S, mean grad 63 mmHg, SARITA 0.7 cm2. Sinus of Valsalva 3.0 cm. Recommending cardiac catheterization, then aortic valve replacement in the very near future. Findings Left coronary artery: The left main, Left anterior descending and circumflex vessels were widely patent and free of disease. The Left anterior descending wraps around the apex. Right coronary artery: Widely patent, free of disease Left ventriculogram: Not done. Heavily calcified aortic valve noted. Description of Procedure Procedure: 1. Conscious sedation 2. Selective Coronary angiography Site: Right radial artery Catheters: 5 Malay arterial sheath, 5 Malay Elisa catheters Conscious sedation: The patient has no known prior history of adverse affects of conscious sedation. Oropharynx was clear. The patient is deemed a good candidate for conscious sedation. Conscious sedation began at: 9:51 a.m. Conscious sedation ended at: 10:22 a.m. Total conscious sedation time: 31 minutes Medications: Versed 2 mg, fentanyl 50 mcg IV push The patient had continuous hemodynamic monitoring, and was also continuously monitored by: The patient tolerated conscious sedation well. Detailed procedure: After informed consent the patient brought to the lab support service tech and the right radiall area was prepped and draped in the usual fashion. After c onscious sedation and local anesthesia, using vascular ultrasound, the right radial artery was punctured and cannulated with the arterial sheath. he was then given heparin 5000 units IV push, and verapamil 2.5 mg with nitroglycerin 200 mcg intra-arterially through the sheath. Selective Coronary angiography was performed with the coronary catheter in multiple projections. This was withdrawn Over wire. Later the arterial sheath was removed and hemostasis was obtained using local pressure with a wrist band. The patient tolerated the procedure well with no complications. Fingers were warm and pink at the completion of the case. Estimated blood loss was negligible. Recommendation: Proceed with surgical consultation MARISA. Pt has been advised several times that this is a life-threatening problem and needs to be done expeditiously, and he should avoid exertion and exercise until after his aortic valve replacement. He and his are aware that sudden cardiac can occur. I have offered to arrange for a CTS consult in the [facility], but pt has decided to return to [place] and proceed w/ evaluation there. OK for discharge today. Estimated Blood Loss 3 (cc) Complications None Condition Stable Disposition Observation
--- NOTE | 2022-12-04 12:00 | SUR.PHASEII ---
Dr. Hurst made aware of slight increase in ST depression on telemetry starting approx 1110 on review of telemetry strips. EKG strips shown to Heather Zuluaga NP. Patient without any symptoms including chest pain or shortness of breath. VSS. No new orders.
--- NOTE | 2022-12-04 14:45 | PM.DS ---
DS: Admitting Diagnosis Discharge Date 12/04/2022 Admitting Diagnosis Syncope DS: Discharge Diagnosis Discharge Diagnosis (1) Near syncope: Code(s): R55 - Syncope and collapse Status: Acute Assessment and Plan: Patient with persistent murmur at auscultation Echocardiogram in a.m. Cardiology consult CT OF THE HEAD REVIEWED Carotid Dopplers in a.m. MRI of the brain and brainstem in a.m. (2) Acute dyspnea: Code(s): R06.00 - Dyspnea, unspecified Status: Acute Assessment and Plan: With exertion History of congenital murmur (3) Elevated troponin: Code(s): R77.8 - Other specified abnormalities of plasma proteins Status: Acute Assessment and Plan: CHEST PAIN-FREE CONTINUE TO TREND TROPONINS NO ACUTE EKG CHANGES Cardiology consult (4) Non-traumatic subconjunctival hemorrhage of both eyes: Status: Acute Assessment and Plan: PLEURITIC IN THE EYE TEARS DS: Summary Hospital Course Reason for hospitalization: NEAR-SYNCOPE Narrative: This is a 42-year-old male with known significant past medical history presents to the emergency room after he was having a strenuous versus size with his 10-year-old daughter running in the yd when he felt like passing out was having profuse diaphoresis and had near syncopal episode denies chest pain patient has been his usual state of health prior to these denies any focal sensorimotor weakness, no leg swelling, no palpitations, on auscultation patient had a persistent murmur and when I inquired stated that he has had that since .? Preliminary workup was significant for elevated troponins.? Patient is been admitted for further evaluation, management, treatment. Hospital Course: 42-year-old male presented with syncope with history of cardiomyopathy seen by cardiology recommended to follow up with primary pcmh specialist as soon as possible, patient is clinically stable will discharge the patient patient to follow discharge care instruction from his pcmh specialist Time Spent with Patient Time attestation: Total time spent providing and/or coordinating discharge services: Exam Narrative: Patient is comfortable, NAD HEENT: eyes are clear and none icteric LUNGS: Normal respiratory effort ABD: Not distended Lower extremities: no edema SKIN: nonjaundiced Neuro: grossly intact. DS: Data Data Completed and Pending Labs on day of discharge: Preliminary micro results at discharge 12/03/22 14:58 Blood Culture - Preliminary Blood 12/03/22 14:51 Blood Culture - Preliminary Blood Discharge Plan Discharge Attending physician on discharge: Elian Gonzalez Consulting providers: Molly Hurst ; Carlos Greene ; Randy Walsh ; Fernando Fisher V. ; Josse Rivear Discharging Clinician: Elian Gonzalez Patient Disposition: Home, Self-Care Activity: other - see discharge instructions Diet: heart healthy Discharge Instructions: Activity: No lifting greater than 15 lb with the effected on for 3 days If mild bleeding occurs, applying manual pressure and call physician If significant bleeding occurs hold pressure with a thumb against the puncture site and the fingers on the back of the wrist and call 911. Resume your normal diet No driving for 2 days after the procedure. Puncture site: Remove the dressing today after the procedure. Wash with soap and water daily in a shower. No soaking wrist in a bathtub or swimming for 3 days. Do not apply any creams or lotions to the puncture site. If minor oozing occurs, apply a Band-Aid. What to watch for: Increased bruising Swelling Temperature greater than 100? Redness, drainage, or foul older at the puncture site Pain that will not go away You may develop scar tissue at the puncture site. This is normal and will feel like a small lump under the skin. It may be there for some time. If you have any of the above problems occur, or you have
== END 2022-12-04 15:30 | disposition home or self-care (01) ==
LOC: ANHED 23:55 → ANHIMU 12-03 13:55
PROVIDERS: Emergency Medicine; Internal Medicine Cardiovascular Disease; Admitting Provider Internal Medicine; Emergency Provider Emergency Medicine; PCP Family Medicine; Visit Provider Family Medicine
PROC: (CPT 93454; principal; 2022-12-04 09:30)
DX: I35.0 Nonrheumatic aortic (valve) stenosis (principal); R55 Syncope and collapse; H11.33 Conjunctival hemorrhage, bilateral; R79.89 Other specified abnormal findings of blood chemistry; R06.00 Dyspnea, unspecified; R77.8 Other specified abnormalities of plasma proteins; I51.89 Other ill-defined heart diseases; F10.90 Alcohol use, unspecified, uncomplicated; J98.11 Atelectasis; R94.31 Abnormal electrocardiogram [ECG] [EKG]; R91.8 Other nonspecific abnormal finding of lung field; Z82.49 Family history of ischemic heart disease and other diseases of the circulatory system; Z79.891 Long term (current) use of opiate analgesic
CPT/HCPCS: 36415; 70450; 70551; 71045; 71275; 80053; 81003; 83605; 83735; 83880; 84484; 85025; 85610; 85730; 87040; 93005; 93306; 93454; 93880; 96361; 96374; 99285; A9270; C1887; C1894; G0378; J0780; J1644; J2250; J3010; J7030; J7040; Q9967

== ENCOUNTER 2023-01-19 19:01 | Observation (INO) | payer OTHER, SELFPAY ==
[2023-01-19] VITALS (19 sets, daily range): BP systolic 114–140; BP diastolic 71–87; PULSE 86–103; RESP 12–23; TEMP 36.6–36.8; O2SAT 90–100
--- NOTE | ~2023-01-19 | CT_ITS ---
EXAMINATION: CT facial & cervical spine wo DATE: 01/19/2023 19:40 INDICATION: Polytrauma TECHNIQUE: Computed tomography (CT) of the maxillofacial region and cervical spine was performed with out intravenous contrast. Automated exposure control and iterative reconstruction technique were empl oyed. The dose-length product was 605.59 mGy-cm. COMPARISON: None FINDINGS: CERVICAL: Vertebral Body Alignment: Intact. Craniocervical and atlantoaxial alignment: Mild degenerative change. Alignment intact. Osseous structures/fracture: No evidence of a lytic or blastic process in the visualized spine. No e vidence of acute fracture. Cervical soft tissues: The paraspinal soft tissues planes are maintained. Calcified left upper lobe g ranuloma. Degenerative changes: Mild degenerative changes, without severe neural foraminal or central canal leonel rowing. FACE: Soft Tissues: Soft tissue laceration and contusion over the mentum, with several foci of radiodense foreign bodies and subcutaneous gas. Facial bones: No acute fracture. No lytic or blastic process. Eyes: The globes are intact. The soft tissue planes of the orbits are maintained. Paranasal Sinuses: Mucosal thickening and retention cysts/polyps in the ethmoid air cells. Retention cysts or polyps in the bilateral sphenoid sinuses. Mucosal thickening and nodular mucosal thickening in the bilateral maxillary sinuses. The mastoid air cells are clear.. Foreign Bodies: No radiopaque foreign bodies. Other Findings: None. IMPRESSION: No acute fracture or traumatic malalignment in the cervical spine. No acute facial bone fracture. Con tusion and laceration over the mentum, with soft tissue debris. Reviewed, dictated and finalized at location K. IMPRESSION: No acute fracture or traumatic malalignment in the cervical spine. No acute fac ial bone fracture. Contusion and laceration over the mentum, with soft tissue d ebris.
--- NOTE | ~2023-01-19 | XR_ITS ---
EXAMINATION: XR chest 1V portable Exam Date/Time: 01/19/2023 19:20 CDT HISTORY: Syncope Comparison: CTPA 12/02/2022. RESULT: Lines, tubes, and devices: None. Lungs and pleura: Low lung times crowding. Diffuse reticulonodular opacities. No focal consolidation , pleural effusion, or pneumothorax Cardiomediastinal silhouette: Stable. Other: No acute osseous or upper abdominal finding. IMPRESSION: Pulmonary opacities may represent bronchiolitis, as can be seen with atypical infection, asthma, aspi ration, and small airways disease. Reviewed, dictated and finalized at location K. IMPRESSION: Pulmonary opacities may represent bronchiolitis, as can be seen with atypical i nfection, asthma, aspiration, and small airways disease.
--- NOTE | ~2023-01-19 | CT_ITS ---
EXAMINATION: CT brain wo con DATE: 01/19/2023 19:38 INDICATION: Syncopal episode, fall, laceration to lip. TECHNIQUE: Computed tomography (CT) of the head was performed without intravenous contrast. The mA wa s adjusted according to patient size. Iterative reconstruction technique was employed. The dose-lengt h product was 681.00 mGy-cm. COMPARISON: 12/02/2022; MR brain 12/03/2022. FINDINGS: No acute intracranial hemorrhage or extra-axial fluid collection. No hydrocephalus, mass, or herniation. No acute ischemic infarct. Unremarkable dural venous sinus attenuation. No acute osseous abnormality. Retention cysts or polyps in the bilateral sphenoid sinuses. Partially opacified ethmoid air cells. T he remaining aerated spaces are clear. IMPRESSION: No acute intracranial process. Reviewed, dictated and finalized at location K.
--- NOTE | 2023-01-19 19:07 | ECG_ITS ---
Measurements Intervals [place] Rate: 92 P: 31 MS: 154 QRS: 59 QRSD: 100 T: -50 QT: 345 QTc: 427 Interpretive Statements SINUS RHYTHM ST-T WAVE ABNORMALITY IN INFERIOR LEADS- CONSIDER ISCHEMIA ABNORMAL ECG COMPARED TO ECG 12/03/2022 14:14:45 NO SIGNIFICANT CHANGES Electronically Signed On 01-19-2023 20:40:07 CDT by Carlos Greene D.O.
--- NOTE | 2023-01-19 19:14 | ED.SYNCOPE ---
HPI - Syncope General Chief Complaint: Syncope Stated Complaint: syncope Time Seen by Provider: 01/19/23 19:03 History of Present Illness HPI narrative: This is a 42-year-old male with reported history of aortic stenosis, brought in by EMS after syncopal episode. The patient states he was chasing his daughter, when he became lightheaded, sat to the ground and lost consciousness. EMS reports the patient suffered facial trauma. The patient complains of 7/10 facial pain and a chipped tooth. He denies preceding palpitations, chest pain or difficulty breathing. He denies the symptoms now. Related Data Home Medications Medication Instructions Recorded Confirmed testosterone cypionate 200 mg IM WEEKLY 01/19/23 01/19/23 Allergies Allergy/AdvReac Type Severity Reaction Status Date / Time Penicillins Allergy Rash Verified 01/19/23 22:26 Review of Systems Review of Systems: CONSTITUTIONAL: Denies fever, chills, or sweats. EYES: Denies visual changes, redness, or discharge. CARDIOVASCULAR: Denies chest pain, palpitations, or edema. RESPIRATORY: Denies cough or dyspnea. GASTROINTESTINAL: Denies abdominal pain, nausea, vomiting, or diarrhea. GENITOURINARY: Denies dysuria or hematuria. SKIN: Denies rash or itching. MUSCULOSKELETAL: Denies back pain, joint pain, or myalgia. NEUROLOGIC: Headache denies numbness, dizziness, or weakness. PSYCHIATRIC: Denies anxiety or depression. [facility] Past Medical History Medical History (Updated 01/20/23 @ 02:23 by Shantanu Ivory MD) Aortic stenosis Surgical History Surgical History (Updated 01/19/23 @ 23:20 by Maryse Hunter NP) H/O eye surgery Right eye at the age of 6 H/O skin graft Left hand Family History Family History (Updated 01/19/23 @ 23:20 by Maryse Hutner NP) Mother Alive and well Father Heart disease Possible heart disease Mental health disorder Lung cancer Grandparent Heart disease Paternal grandfather had CABG when young, perhaps in his 30's. Social History Social History (Updated 01/19/23 @ 23:21 by Maryse Hunter NP) Social History: The patient lives with his . He works for [employer]. He is in the process of re locating to [place]. He has 4 children. Code status full code Smoking packs per day: 1 Smoking cigarettes per day: 20.0 Years smoked: 8 Smoking pack-years: 8.00 Smoking status: Former smoker Tobacco type: cigarettes Alcohol intake: current Drinks per week: 3 Substance use: never Lack of Transportation: No Lack of Food: Never True Current Housing: I Have Housing Concerned About Future Housing: No Difficulty Paying Gas/Electric Bills: No Difficulty Paying for Meds: No Currently Unemployed: No Education: Bachelor's Degree Difficulty w/ Childcare or Family Care: No Spiritual care concerns: No Exam Narrative: GENERAL: Well-developed, well-nourished, and in no acute distress. HEAD: Normocephalic, an approximately 1 cm laceration of the left lower lip crossing the vermilion border, abrasions over the right eyebrow. EYES: PERRLA and EOMI. ENT: Nares clear, no rhinorrhea or epistaxis. Mucous membranes moist. Oropharynx without tonsillar hypertrophy exudate or other lesions. Bilateral TMs pearly roman nonbulging. No noted hemotympanum. Tender to palpation over the right maxilla. Tooth #9 fracture with visible enamel but without dentin NECK: Supple. No adenopathy or masses. No carotid bruits or JVD CHEST: Clear to auscultation. No respiratory distress. No wheezes rales or rhonchi HEART: Regular rate and rhythm. Grade 3/5 systolic murmur greater over the aortic region, radiating to the neck. Normal peripheral pulses. ABDOMEN: Soft, nontender, nondistended, normal active bowel sounds. EXTREMITIES: Normal range of motion. No edema. Superficial abrasions over the bilateral knees SKIN: Warm, dry, no rash. NEURO: No focal deficits. Alert and oriented x3. Str
[2023-01-19 19:27] LABS: Basophils Percent Auto 0.3 % (0.2-1.2); Eosinophils Absolute Auto 0.4 K/mm3 (0-0.3); Eosinophils Percent Auto 4.2 % (0-4.4); Hematocrit 43.2 % (42.0-52.0); Hemoglobin 14.7 g/dL (14.0-18.0); Immature Granulocyte Absolute 0.03 K/mm3 (0.00-0.031); Immature Granulocyte Percent A 0.3 % (0-0.5); Lymphocytes Absolute Auto 2.89 K/mm3 (0.9-3.2); Mean Corpuscular Hemoglobin 27.3 pg (26-34); Mean Corpuscular Volume 80.1 fl (80-100); Monocytes Absolute Auto 0.8 K/mm3 (0.1-0.6); Neutrophils Absolute Auto 4.7 K/mm3 (1.3-6.7); Neutrophils Percent Auto 53.2 % (45.5-73.1); Platelet Count Result 206 k/mm3 (150-375); Red Blood Count 5.39 M/mm3 (4.6-6.20); Red Cell Distribution Width 14.9 % (11.5-14.5); White Blood Count 8.8 K/mm3 (4.5-10.0)
[2023-01-19] MEDS: ONDANSETRON INJ 4 MG/2 ML VIAL IV PUSH (19:37)
[2023-01-19] MEDS: TETANUS,DIPHTHERIA,AC PERTUSSIS ADULT (0.5 ML) BOOSTRIX IM (19:37)
[2023-01-19] MEDS: MORPHINE SULFATE (*CRX) 2 MG/ML INJ IV PUSH (19:37)
[2023-01-19] MEDS: SODIUM CHLORIDE 0.9% IV 1,000 ML 999 ML IV CONT (19:39)
[2023-01-19 19:40] LABS: Alanine Aminotransferase 144 U/L (6-50); Albumin Level 4.5 g/dL (3.5-5.1); Alkaline Phosphatase 44 U/L (38-126); Anion Gap 12 mmol/L (8-16); Aspartate Amino Transferase 154 U/L (17-59); Bilirubin,Total 0.5 mg/dL (0.2-1.3); Blood Urea Nitrogen 18 mg/dL (9-20); Calcium 8.8 mg/dL (8.4-10.2); Carbon Dioxide 22 mmol/L (22-30); Chloride 104 mmol/L (98-107); Estimated CRCL calculation 77 ml/min; Estimated Glomerular Filt Rate > 60; Glucose 113 mg/dL (65-110); INR 1.1; Magnesium 1.9 mg/dL (1.6-2.3); Potassium 3.7 mmol/L (3.4-5.0); Prothrombin Time 14.4 Seconds (11.1-14.7); Sodium 138 mmol/L (137-145)
[2023-01-19] MEDS: LIDOCAINE HCL 2% LOCAL INJ 20 ML VIAL (19:42)
[2023-01-19 19:51] LABS: Troponin I < 0.012 ng/mL (0.000-0.034)
--- NOTE | 2023-01-19 22:20 | ADMGEN ---
This patient, Narinder Brown, was admitted to Medical Room 344-01. Patient/family oriented to hospital policies and general routines including ID bracelet, bed and alarms, visiting hours, pain management, procedures, bathroom and other care routines, personal items, smoking policy, room service/diet, and visiting hours. Information on how to activate the Rapid Response Team has been discussed. Patient/Family are encouraged to report perceived risks to care and to ask questions if they do not understand what they are told or what they should do.
--- NOTE | 2023-01-19 23:08 | PM.IMHP ---
H&P: HPI History of Present Illness Date/Time: 01/19/23 23:08 Chief Complaint: syncope Narrative: This is a 42 year old male patient who has a history of aortic stenosis.He was brought into the er today after a syncopal episode. Patient stated that he was moving out of the way of his 10-year-old daughter. The patient stated that he became lightheaded and sat on the ground. The patient stated that when he tried to get up off the ground he lost consciousness. The patient has multiple abrasions to his nose the right cheek the chin his lip is swollen. The patient is complaining of facial pain 7/10 he also chips his front tooth on the left. The patient denies any palpitations. The patient stated that he is scheduled to go to [place] to have an aortic replace next month. The patient stated that he could have had his aortic valve replaced sooner however he was holding off because he is in the process of moving. The patient was given IV fluids morphine Tylenol and IV fluids in the emergency room. Troponin 0.012. Head cervical spine facial bones was read as no acute fracture or traumatic malalignment in the cervical spine. No acute facial bone fracture. Contusion and laceration over the mentum. Was soft tissue debris. Head CT was read as no acute intracranial process. Chest x-ray was read as pulmonary [place] may represent bronchiolitis as can be seen with atypical infection, asthma, aspiration small airway disease. Cardiology has been called and agreed to consult. The patient is being admitted to observation status on the date of service of 01/19/2023 Review of Systems Review of Systems: All systems reviewed & are unremarkable except as noted in HPI and below Constitutional: Constitutional: Reports as per HPI and Reports no additional constitutional complaints Eyes: Eyes: Reports as per HPI and Reports no additional eye complaints ENT: Reports system reviewed and no additional complaints, except as documented and Reports Normal hearing present Cardiovascular: Cardiovascular: Reports no additional cardiovascular complaints Respiratory: Respiratory: Reports no additional respiratory complaints and Reports no additional respiratory complaints Gastrointestinal: Gastrointestinal: Reports as per HPI and Reports no additional gastrointestinal complaints Musculoskeletal: Musculoskeletal: Reports no additional musculoskeletal complaints Integumentary/Breasts: Skin/Breast: Reports system reviewed and no additional complaints, except as docu and Reports as per HPI Neurologic: Reports system reviewed and no additional complaints, except as documented, Reports as per HPI and Reports Normal hearing present Psychiatric: Psychiatric: Reports no additional psychiatric complaints and Reports as per HPI Endocrine: Endocrine: Reports no additional endocrine complaints Hematologic/Lymphatic: Hematologic/Lymphatic: Reports no additional hematologic/lymphatic complaints Allergic/Immunologic: Allergic/Immunologic: Reports no additional allergic/immunologic complaints [facility] Past Medical History Medical History (Updated 01/19/23 @ 21:47 by Shantanu Ivory MD) Aortic stenosis Surgical History Surgical History (Updated 01/19/23 @ 23:20 by Maryse Hunter NP) H/O eye surgery Right eye at the age of 6 H/O skin graft Left hand Family History Family History (Updated 01/19/23 @ 23:20 by Maryse Hunter NP) Mother Alive and well Father Heart disease Possible heart disease Mental health disorder Lung cancer Grandparent Heart disease Paternal grandfather had CABG when young, perhaps in his 30's. Social History Social History (Updated 01/19/23 @ 23:21 by Maryse Hunter NP) Social History: The patient lives with his . He works for [employer]. He is in the process of re locating to [place]. He has 4 children. Code status full code Smoking packs per day: 1 Smoking cigarettes per day: 20.0 Ye
[2023-01-19] MEDS: ACETAMINOPHEN 500 MG TABLET 1000 MG PO (23:40)
[2023-01-20] VITALS (9 sets, daily range): BP systolic 124–133; BP diastolic 70–91; PULSE 54–78; RESP 16–18; TEMP 36.5–37.5; O2SAT 96–98
[2023-01-20 00:31] LABS: Troponin I 0.136 ng/mL (0.000-0.034)
[2023-01-20 06:04] LABS: Alanine Aminotransferase 125 U/L (6-50); Albumin Level 3.9 g/dL (3.5-5.1); Alkaline Phosphatase 48 U/L (38-126); Anion Gap 5 mmol/L (8-16); Aspartate Amino Transferase 81 U/L (17-59); Bilirubin,Total 0.6 mg/dL (0.2-1.3); Blood Urea Nitrogen 15 mg/dL (9-20); Calcium 8.4 mg/dL (8.4-10.2); Carbon Dioxide 28 mmol/L (22-30); Chloride 105 mmol/L (98-107); Estimated CRCL calculation 84 ml/min; Estimated Glomerular Filt Rate > 60; Glucose 102 mg/dL (65-110); Potassium 4.2 mmol/L (3.4-5.0); Sodium 138 mmol/L (137-145)
--- NOTE | 2023-01-20 10:26 | PM.CNCAR ---
Assessment and Plan Assessment and plan (1) Syncope: Qualifiers: Syncope type: unspecified Qualified Code(s): R55 - Syncope and collapse Code(s): R55 - Syncope and collapse Status: Acute Assessment and Plan: related to aortic stenosis with facial injury noted (2) Aortic stenosis: Qualifiers: Cardiac valve disease etiology: etiology unspecified Qualified Code(s): I35.0 - Nonrheumatic aortic (valve) stenosis Code(s): I35.0 - Nonrheumatic aortic (valve) stenosis Status: Acute Assessment and Plan: Critical aortic stenosis as detailed previously in the note above as well as on previous hospitalization a couple of months ago. Scheduled for surgery in [facility] on March 19. I have personally already called but awaiting a call back from CT surgeon Dr. Hwang with hopes and intentions of expediting his surgery. At this point, I do not think that he should wait until March and this should be done and a more expeditious manner. He is advised not to drive given his syncopal episode. He is also advised to perform no strenuous activity or significant physical activity at all at this point. Also advised to stay hydrated. Get up slowly from a sitting position. and if he becomes dizzy to sit and lie back down. (3) Elevated troponin: Code(s): R77.8 - Other specified abnormalities of plasma proteins Status: Acute Assessment and Plan: related aortic stenosis. Not related to acute plaque rupture. History of Present Illness History of Present Illness Consult date/time: 01/20/23 10:26 Requesting physician: Shantanu Ivory MD Consult reason: aortic stenosis and Other ( syncope) Reason For Visit: Syncope Narrative: date of service 01/20/2023: reason for consultation: Syncope, aortic stenosis Requesting physician: Dr. Ivory History: Patient is a 42-year-old male who has a history of congenital aortic valvular disease who presented to the hospital with an episode of recurrent syncope. Patient was outside yesterday and he moved quickly. In the process of quick movement, he became lightheaded. He states start to walk a few steps further and felt like the episode of lightheadedness was not going to fade. He sat down at that time. He does not remember anything else at that point except for waking up on the ground as EMS was arriving. Per and per the patient, he reportedly had stood back up after sitting down and upon doing so, fell forward and passed out. He did sustain significant facial abrasions and lacerations and injury from hitting the sidewalk. Reportedly chest compressions were performed temporarily and the patient was reportedly turning blue and not breathing for a period of time. He denies any chest pain, shortness of breath, paroxysmal nocturnal dyspnea, orthopnea, edema or palpitations. He does have a known history of critical aortic stenosis which has already been worked up to the point of awaiting surgery. He has surgery scheduled for March 19 in [facility] Review of Systems Review of Systems: All systems reviewed & are unremarkable except as noted in HPI and below Constitutional: Constitutional: Denies body ache(s) Eyes: Eyes: Denies blurry vision ENT: Denies epistaxis and Denies nasal discharge Cardiovascular: Cardiovascular: Denies chest pain and Reports lightheadedness Respiratory: Respiratory: Denies chest congestion and Denies cough Gastrointestinal: Gastrointestinal: Denies abdominal pain Genitourinary: Genitourinary: Denies hematuria Musculoskeletal: Musculoskeletal: Denies back pain Integumentary/Breasts: Skin/Breast: Denies dry skin Neurologic: Denies abnormal gait Psychiatric: Psychiatric: Denies behavioral changes Endocrine: Endocrine: Denies excessive sweating Hematologic/Lymphatic: Hematologic/Lymphatic: Denies easy bleeding Allergic/Immunologic: Allergic/Immunologic: Denies GI upset with cer
[2023-01-20] MEDS: ACETAMINOPHEN 500 MG TABLET 1000 MG PO ×2 (11:07→20:07)
--- NOTE | 2023-01-20 13:06 | PM.IMPN ---
Progress Note: A&P Assessment and Plan (1) Syncope: Qualifiers: Syncope type: unspecified Qualified Code(s): R55 - Syncope and collapse Code(s): R55 - Syncope and collapse Status: Acute Assessment and Plan: The patient stated that he moved all the way for his 10-year-old who was running past him. The patient stated that he felt dizzy and lightheaded and sat on the ground. He stated that when he went to get back up is when he felt lightheaded again and lost consciousness. The patient hit his head on the ground. He has multiple facial abrasions. Patient also tipped is tooth on the left side. CT of the facial bones was read as followingNo acute fracture or traumatic malalignment in the cervical spine. No acute facial bone fracture. Contusion and laceration over the mentum, with soft tissue debris. Head CT was read as No acute intracranial process. Tylenol for the discomfort. (2) Aortic stenosis: Qualifiers: Cardiac valve disease etiology: etiology unspecified Qualified Code(s): I35.0 - Nonrheumatic aortic (valve) stenosis Code(s): I35.0 - Nonrheumatic aortic (valve) stenosis Status: Acute Assessment and Plan: Cardiology has been consulted. The patient stated that next month he is due to have an aortic valve replacement at [facility]. The patient stated that he is in the middle of relocation and wanted to wait until next month. However this is the 2nd time in 2 months that he has had a syncopal episode. The patient stated he was examined when he was younger and it was felt that he outgrew this murmur. However later in his life when he was in his 20s he was aware that he had aortic stenosis. awaiting av replacement Subjective Date/time seen: 01/20/23 13:06 Interval history: 42? year old male patient who has a history of aortic stenosis.He was brought into the er today after a syncopal episode.? Patient stated that he was moving out of the way of his 10-year-old daughter.? The patient stated that he became lightheaded and sat on the ground.? The patient stated that when he tried to get up off the ground he lost consciousness.? Pt awaiting AV valve replacement in [facility] cardiologists are discussing date of surgery Review of Systems Review of Systems: Facial pains from wounds Exam Const: General: cooperative, healthy appearing, comfortable, no acute distress, well developed, alert, awake, Physically active, average body habitus and well nourished Nutritional Appearance: average body habitus and well nourished Orientation/consciousness: oriented to person, oriented to place, oriented to time and patient oriented x3 Limitations: no limitations Chest: Chest palpation & inspection: normal inspection of the chest Resp: Effort & Inspection: normal respiratory effort Auscultation: clear to auscultation bilaterally Cardio: Palpation: normal PMI Rate: regular rate Rhythm: regular rhythm Heart sounds: S1 normal heart sound present, S2 normal heart sound present and Murmur heart sound present (Aortic murmur) Peripheral pulses: Peripheral pulses 2+ throughout Skin: General skin exam: normal color Lesions: no lesions Rashes: no rashes Trauma: no lacerations or abrasions Wounds: no wounds Hair: normal Nails: normal Other: Facial abrasions on the bridge of his nose, right cheek, left lip and his chin Neuro: General: oriented to person, oriented to place, oriented to time and patient oriented x3 Cranial nerves: Yes Equal, round and reactive pupils present and Yes Normal hearing present Cognition (Neuro): normal cognition Speech: normal speech Gait exam (Neuro): Normal gait present Motor exam (neuro): 5/5 motor strength present throughout Sensory Exam: normal sensation Extrem: General: normal to inspection Right upper extremity: normal to inspection and shoulder/upper arm Left upper extremity: normal to inspection and shoulder/upper arm Right low
--- NOTE | 2023-01-20 14:44 | PM.TDS ---
Transfer Discharge Sum: Prov Provider Date of admission: 01/19/23 21:43 Primary care physician: Bret Rausch, Admitting clinician: Farhana Dykes DO Consults: 01/19/23 21:44 Consult to Physician Routine Comment: Consulting Provider: Molly Hurst Reason for consultation: Severe Aortic Stenosis with Syncope Has provider been notified: Yes DS: Discharge Diagnosis Discharge Diagnosis (1) Syncope: Qualifiers: Syncope type: unspecified Qualified Code(s): R55 - Syncope and collapse Code(s): R55 - Syncope and collapse Status: Acute Assessment and Plan: The patient stated that he moved all the way for his 10-year-old who was running past him. The patient stated that he felt dizzy and lightheaded and sat on the ground. He stated that when he went to get back up is when he felt lightheaded again and lost consciousness. The patient hit his head on the ground. He has multiple facial abrasions. Patient also tipped is tooth on the left side. CT of the facial bones was read as followingNo acute fracture or traumatic malalignment in the cervical spine. No acute facial bone fracture. Contusion and laceration over the mentum, with soft tissue debris. Head CT was read as No acute intracranial process. Tylenol for the discomfort. (2) Aortic stenosis: Qualifiers: Cardiac valve disease etiology: etiology unspecified Qualified Code(s): I35.0 - Nonrheumatic aortic (valve) stenosis Code(s): I35.0 - Nonrheumatic aortic (valve) stenosis Status: Acute Assessment and Plan: Cardiology has been consulted. The patient stated that next month he is due to have an aortic valve replacement at [facility]. The patient stated that he is in the middle of relocation and wanted to wait until next month. However this is the 2nd time in 2 months that he has had a syncopal episode. The patient stated he was examined when he was younger and it was felt that he outgrew this murmur. However later in his life when he was in his 20s he was aware that he had aortic stenosis. awaiting av replacement Transfer Discharge Sum: Med Medications Active and Home Medications: Home Medications testosterone cypionate 200 mg IM WEEKLY 01/19/23 [History Confirmed 01/19/23] Active Medications Acetaminophen (Acetaminophen 500 Mg Tablet) 1,000 mg PO Q6H PRN PRN Reason: Mild Pain (1-3) or Fever Last Admin: 01/20/23 11:07 Dose: 1,000 mg Transfer Discharge Sum: Hosp Hospital Course Hospital course: Narinder Brown is a 42 year old male Time Spent with Patient Time attestation: Total time spent providing and/or coordinating transfer services: Exam Const: General: cooperative, healthy appearing, comfortable, no acute distress, well developed, alert, awake, Physically active, average body habitus and well nourished Nutritional Appearance: average body habitus and well nourished Orientation/consciousness: oriented to person, oriented to place, oriented to time and patient oriented x3 Limitations: no limitations HENMT: Head: normal to inspection, No palpable skull fracture present, normocephalic, atraumatic and abrasion Ears: hearing grossly normal bilaterally and external ears normal Face/Nose/Sinus: Normal external nose present and Normal nares present Other: The patient has multiple facial abrasions. He has an abrasion to his right cheek his nose left side of his lip and he has a swollen lip. Eyes: General: appearance normal, both eyes and all related structures Alignment and Position: alignment normal Periorbital: periorbital findings normal Eyelids: eyelids normal Sclera: sclerae normal Pupils: Equal, round and reactive pupils present and Pupil accommodation reflex normal EOM: EOMs intact bilaterally Neck: Neck: normal visual inspection, full ROM, no lymphadenopathy, trachea midline and supple Lymphatic: no lymphadenopathy noted Chest: Ches
[2023-01-21] VITALS (9 sets, daily range): BP systolic 128–132; BP diastolic 58–79; PULSE 61–84; RESP 14–20; TEMP 36.6–37.2; O2SAT 97–100
--- NOTE | 2023-01-21 13:57 | PM.IMPN ---
Progress Note: A&P Assessment and Plan (1) Syncope: Qualifiers: Syncope type: unspecified Qualified Code(s): R55 - Syncope and collapse Code(s): R55 - Syncope and collapse Status: Acute Assessment and Plan: The patient stated that he moved all the way for his 10-year-old who was running past him. The patient stated that he felt dizzy and lightheaded and sat on the ground. He stated that when he went to get back up is when he felt lightheaded again and lost consciousness. The patient hit his head on the ground. He has multiple facial abrasions. Patient also tipped is tooth on the left side. CT of the facial bones was read as followingNo acute fracture or traumatic malalignment in the cervical spine. No acute facial bone fracture. Contusion and laceration over the mentum, with soft tissue debris. Head CT was read as No acute intracranial process. Tylenol for the discomfort. (2) Aortic stenosis: Qualifiers: Cardiac valve disease etiology: etiology unspecified Qualified Code(s): I35.0 - Nonrheumatic aortic (valve) stenosis Code(s): I35.0 - Nonrheumatic aortic (valve) stenosis Status: Acute Assessment and Plan: Cardiology has been consulted. The patient stated that next month he is due to have an aortic valve replacement at [facility]. The patient stated that he is in the middle of relocation and wanted to wait until next month. However this is the 2nd time in 2 months that he has had a syncopal episode. The patient stated he was examined when he was younger and it was felt that he outgrew this murmur. However later in his life when he was in his 20s he was aware that he had aortic stenosis. awaiting av replacement Awaiting bed in [facility] Subjective Date/time seen: 01/21/23 13:57 Interval history: 42? year old male patient who has a history of aortic stenosis.He was brought into the er today after a syncopal episode.? Patient stated that he was moving out of the way of his 10-year-old daughter.? The patient stated that he became lightheaded and sat on the ground.? The patient stated that when he tried to get up off the ground he lost consciousness.? Pt awaiting AV valve replacement in [facility] cardiologists Pt is accepted to [facility] awaiting bed No new complaints Review of Systems Review of Systems: Facial pains from wounds All systems reviewed & are unremarkable except as noted in HPI and below Constitutional: Constitutional: Reports as per HPI and Reports no additional constitutional complaints Eyes: Eyes: Reports as per HPI and Reports no additional eye complaints ENT: Reports system reviewed and no additional complaints, except as documented Cardiovascular: Cardiovascular: Reports no additional cardiovascular complaints Respiratory: Respiratory: Reports no additional respiratory complaints and Reports no additional respiratory complaints Gastrointestinal: Gastrointestinal: Reports as per HPI and Reports no additional gastrointestinal complaints Musculoskeletal: Musculoskeletal: Reports no additional musculoskeletal complaints Integumentary/Breasts: Skin/Breast: Reports system reviewed and no additional complaints, except as docu and Reports as per HPI Neurologic: Reports system reviewed and no additional complaints, except as documented and Reports as per HPI Psychiatric: Psychiatric: Reports no additional psychiatric complaints and Reports as per HPI Endocrine: Endocrine: Reports no additional endocrine complaints Hematologic/Lymphatic: Hematologic/Lymphatic: Reports no additional hematologic/lymphatic complaints Allergic/Immunologic: Allergic/Immunologic: Reports no additional allergic/immunologic complaints Exam Const: General: cooperative, healthy appearing, comfortable, no acute distress, well developed, alert, awake, Physically active, average body habitus and well nourished Nutritional Appearance: a
[2023-01-21] MEDS: ACETAMINOPHEN 500 MG TABLET 1000 MG PO (20:09)
[2023-01-22] VITALS (9 sets, daily range): BP systolic 130–143; BP diastolic 67–92; PULSE 54–72; RESP 16; TEMP 36.2–36.5; O2SAT 97–98
--- NOTE | 2023-01-22 09:04 | PM.PNCARD ---
Progress Note: A&P Assessment and Plan (1) Syncope: Qualifiers: Syncope type: unspecified Qualified Code(s): R55 - Syncope and collapse Code(s): R55 - Syncope and collapse Status: Acute Assessment and Plan: related to aortic stenosis with facial injury noted. No recurrence (2) Aortic stenosis: Qualifiers: Cardiac valve disease etiology: etiology unspecified Qualified Code(s): I35.0 - Nonrheumatic aortic (valve) stenosis Code(s): I35.0 - Nonrheumatic aortic (valve) stenosis Status: Acute Assessment and Plan: Critical aortic stenosis as detailed previously in the note above as well as on previous hospitalization a couple of months ago. Scheduled for surgery in [place] on March 19. Awaiting transfer to [place]. Continue telemetry and observation. (3) Elevated troponin: Code(s): R77.8 - Other specified abnormalities of plasma proteins Status: Acute Assessment and Plan: related aortic stenosis. Not related to acute plaque rupture. Subjective Date/time seen: 01/22/23 09:04 Interval history: 42? year old male patient who has a history of aortic stenosis.He was brought into the er today after a syncopal episode.? Patient stated that he was moving out of the way of his 10-year-old daughter.? The patient stated that he became lightheaded and sat on the ground.? The patient stated that when he tried to get up off the ground he lost consciousness.? Date of service 01/22/2023: Feeling better. No chest pain, shortness breath, syncope. Still awaiting transfer Review of Systems Review of Systems: All systems reviewed & are unremarkable except as noted in HPI and below Constitutional: Constitutional: Denies body ache(s) and Denies excessive sweating Eyes: Eyes: Denies blurry vision ENT: Denies epistaxis and Denies nasal discharge Cardiovascular: Cardiovascular: Denies chest pain and Reports lightheadedness Respiratory: Respiratory: Denies chest congestion and Denies cough Gastrointestinal: Gastrointestinal: Denies abdominal pain Genitourinary: Genitourinary: Denies hematuria Musculoskeletal: Musculoskeletal: Denies abnormal gait and Denies back pain Integumentary/Breasts: Skin/Breast: Denies dry skin Neurologic: Denies abnormal gait and Denies behavioral changes Psychiatric: Psychiatric: Denies behavioral changes Endocrine: Endocrine: Denies excessive sweating Hematologic/Lymphatic: Hematologic/Lymphatic: Denies easy bleeding Allergic/Immunologic: Allergic/Immunologic: Denies GI upset with certain foods Exam Narrative: awake alert oriented appears to be in no acute distress. Appears stated age Const: General: comfortable and no acute distress HENMT: Face/Nose/Sinus: Normal nares present Mouth: Yes moist mucous membranes Other: facial abrasions are noted as well as swollen lip and blood in his right ear canal Eyes: Sclera: sclerae normal Neck: Neck: supple Thyroid: thyroid normal Chest: Other: no reproducible chest wall pain to palpation Resp: Effort & Inspection: normal respiratory effort Auscultation: clear to auscultation bilaterally Cardio: Rate: regular rate Rhythm: regular rhythm Heart sounds: Murmur heart sound present Other: 3-4/6 systolic ejection murmur at base GI: Inspection: non-distended Auscultation: normal bowel sounds Skin: General skin exam: normal color and wounds noted Wounds: wounds noted Other: as detailed above Neuro: Speech: normal speech Motor exam (neuro): 5/5 motor strength present throughout Sensory Exam: normal sensation Extrem: General: normal to inspection Psych: Mental Status: mental status grossly normal Affect: normal affect Objective Data Vital Signs Vital Signs: Vital Signs - 24 hr 01/21/23 10:58 01/21/23 12:00 01/21/23 14:00 Temperature 36.6 C Pulse Rate 75 80 Respiratory Rate 14 Blood Pressure 128/71 P
--- NOTE | 2023-01-22 11:43 | PM.TDS ---
Transfer Discharge Sum: Prov Provider Date of admission: 01/19/23 21:43 Primary care physician: Bret Rausch, Admitting clinician: Farhana Dykes DO Consults: 01/19/23 21:44 Consult to Physician Routine Comment: Consulting Provider: Molly Hurst Reason for consultation: Severe Aortic Stenosis with Syncope Has provider been notified: Yes DS: Admitting Diagnosis Discharge Date 01/22/2023 Admitting Diagnosis Syncope DS: Discharge Diagnosis Discharge Diagnosis (1) Syncope: Qualifiers: Syncope type: unspecified Qualified Code(s): R55 - Syncope and collapse Code(s): R55 - Syncope and collapse Status: Acute (2) Aortic stenosis: Qualifiers: Cardiac valve disease etiology: etiology unspecified Qualified Code(s): I35.0 - Nonrheumatic aortic (valve) stenosis Code(s): I35.0 - Nonrheumatic aortic (valve) stenosis Status: Acute Transfer Discharge Sum: Med Medications Active and Home Medications: Home Medications testosterone cypionate 200 mg IM WEEKLY 01/19/23 [History Confirmed 01/19/23] Active Medications Acetaminophen (Acetaminophen 500 Mg Tablet) 1,000 mg PO Q6H PRN PRN Reason: Mild Pain (1-3) or Fever Last Admin: 01/21/23 20:09 Dose: 1,000 mg Transfer Discharge Sum: Hosp Hospital Course Hospital course: Narinder Brown is a 42 year old male who presented with # syncope: 8 that The patient stated that he moved all the way for his 10-year-old who was running past him.? The patient stated that he felt dizzy and lightheaded and sat on the ground.? He stated that when he went to get back up is when he felt lightheaded again and lost consciousness.? The patient hit his head on the ground.? He has multiple facial abrasions.? Patient also tipped is tooth on the left side.? CT of the facial bones was read as following. No acute fracture or traumatic malalignment in the cervical spine. No acute facial bone fracture. Contusion and laceration over the mentum, with soft tissue debris. Head CT was read as No acute intracranial process. Tylenol for the discomfort. # aortic stenosis: Cardiology has been consulted.? The patient stated that next month he is due to have an aortic valve replacement at [facility].? The patient stated that he is in the middle of relocation and wanted to wait until next month.? However this is the 2nd time in 2 months that he has had a syncopal episode.? The patient stated he was examined when he was younger and it was felt that he outgrew this murmur.? However later in his life when he was in his 20s he was aware that he had aortic stenosis. awaiting av replacement. Transfer to [place] for further treatment. Time Spent with Patient Time attestation: Total time spent providing and/or coordinating transfer services: 30 Exam Narrative: GENERAL: Well-developed, well-nourished, and in no acute distress. HEAD: Normocephalic, abrasions in the face is noted EYES: PERRLA and EOMI. ENT: Nares clear, no rhinorrhea or epistaxis. NECK: Supple.? No adenopathy or masses.? No carotid bruits or JVD CHEST: Clear to auscultation.? No respiratory distress.? No wheezes rales or rhonchi HEART: Regular rate and rhythm.? Grade 3/5 systolic murmur greater over the aortic region, radiating to the neck.? Normal peripheral pulses. ABDOMEN: Soft, nontender, nondistended, normal active bowel sounds. EXTREMITIES: Normal range of motion.? No edema.? Superficial abrasions over the bilateral knees SKIN: Warm, dry, no rash. NEURO: No focal deficits.? Alert and oriented x3.? Strength 5/5 in all extremities, sensation intact bilaterally PSYCH: Normal mood and affect. DS: Data Imaging Radiologist's impression: ITS Impressions Chest X-Ray 01/19/23 19:31 IMPRESSION: Pulmonary opacities may represent bronchiolitis, as can be seen with atypical infection, asthma, aspiration, and small airways disease. Head CT 01/19/23
--- NOTE | 2023-01-22 15:39 | PC.NURSE ---
Having difficulty finding transportation for the pt who is being transferred to [facility] in [place], [place]. No ambulances are available d/t the far distance. RN called transfer center regarding this and asked if there was any other options for transportation from their end. Transfer center stated that [facility] or [employer] is a possibility that can be explored. RN spoke with pt regarding this. Pt and family member called their insurance company about cost/if this would be covered. Pt stated that insurance company would like for us to call them and speak with them about this matter. Coal Hauler Operator, Chelsey, spoke with insurance company over the phone. Transfer center expedited this matter to their bottle caser for authorization to cover. Awaiting a call back from insurance company regarding authorization. Pt aware and would like to wait for authorization. 1539: RN updated transfer center regarding difficulty finding transportation. Transfer center aware that we are waiting on insurance authorization for an [employer] ride.
--- NOTE | 2023-01-22 17:34 | PCCCNOTE ---
Called [facility] at [phone] after getting thru automated system spoke with [facility] rep and told that auth still pending. Pending Auth# [id number] and call ref# [id number]
[2023-01-22] MEDS: ACETAMINOPHEN 500 MG TABLET 1000 MG PO (19:45)
--- NOTE | 2023-01-22 20:49 | PC.NURSE ---
At 2044, I reached out to the [facility] Transfer center to update them about how our progress with obtaining the transportation for Mr. Brown was going. At this time I notified them that we are awaiting verification from our patients insurance on approval of the [employer] transport but we also have established secondary transport ALS at 0930 on 01/23/23 encase we did not receive word. Facility agreed they are wanting to hold the bed for this patient and any further questions were answered at this time. Patient was also notified with any updates at this time.
[2023-01-23] VITALS: PULSE 81
[2023-01-23 04:00] VITALS: PULSE 52
[2023-01-23 05:34] VITALS: BP 126/84; PULSE 52; RESP 18; TEMP 36.1; O2SAT 98
--- NOTE | 2023-01-23 07:25 | PC.NURSE ---
0720:ANGEL called report again to Shell at [facility], Delfino COOLEY.
[2023-01-23 08:00] VITALS: PULSE 84
--- NOTE | 2023-01-23 09:21 | PM.PNCARD ---
Progress Note: A&P Assessment and Plan (1) Syncope: Qualifiers: Syncope type: unspecified Qualified Code(s): R55 - Syncope and collapse Code(s): R55 - Syncope and collapse Status: Acute Assessment and Plan: related to aortic stenosis with facial injury noted. No recurrence. Rhythm is stable. (2) Aortic stenosis: Qualifiers: Cardiac valve disease etiology: etiology unspecified Qualified Code(s): I35.0 - Nonrheumatic aortic (valve) stenosis Code(s): I35.0 - Nonrheumatic aortic (valve) stenosis Status: Acute Assessment and Plan: Critical aortic stenosis as detailed previously in the note above as well as on previous hospitalization a couple of months ago. Transferring today. Surgery next week. Continue telemetry and observation. (3) Elevated troponin: Code(s): R77.8 - Other specified abnormalities of plasma proteins Status: Acute Assessment and Plan: related aortic stenosis. Not related to acute plaque rupture. Subjective Date/time seen: 01/23/23 09:21 Interval history: 42? year old male patient who has a history of aortic stenosis.He was brought into the er today after a syncopal episode.? Patient stated that he was moving out of the way of his 10-year-old daughter.? The patient stated that he became lightheaded and sat on the ground.? The patient stated that when he tried to get up off the ground he lost consciousness.? Date of service 01/23/2023: He has been accepted is leaving this morning. No chest pain, shortness of breath. Plan for surgery next week Review of Systems Review of Systems: All systems reviewed & are unremarkable except as noted in HPI and below Constitutional: Constitutional: Denies body ache(s) and Denies excessive sweating Eyes: Eyes: Denies blurry vision ENT: Denies epistaxis and Denies nasal discharge Cardiovascular: Cardiovascular: Denies chest pain and Reports lightheadedness Respiratory: Respiratory: Denies chest congestion and Denies cough Gastrointestinal: Gastrointestinal: Denies abdominal pain Genitourinary: Genitourinary: Denies hematuria Musculoskeletal: Musculoskeletal: Denies abnormal gait and Denies back pain Integumentary/Breasts: Skin/Breast: Denies dry skin Neurologic: Denies abnormal gait and Denies behavioral changes Psychiatric: Psychiatric: Denies behavioral changes Endocrine: Endocrine: Denies excessive sweating Hematologic/Lymphatic: Hematologic/Lymphatic: Denies easy bleeding Allergic/Immunologic: Allergic/Immunologic: Denies GI upset with certain foods Exam Narrative: awake alert oriented appears to be in no acute distress. Appears stated age Const: General: comfortable and no acute distress HENMT: Face/Nose/Sinus: Normal nares present Mouth: Yes moist mucous membranes Other: facial abrasions are noted as well as swollen lip and blood in his right ear canal Eyes: Sclera: sclerae normal Neck: Neck: supple Thyroid: thyroid normal Chest: Other: no reproducible chest wall pain to palpation Resp: Effort & Inspection: normal respiratory effort Auscultation: clear to auscultation bilaterally Cardio: Rate: regular rate Rhythm: regular rhythm Heart sounds: Murmur heart sound present Other: 3-4/6 systolic ejection murmur at base GI: Inspection: non-distended Auscultation: normal bowel sounds Skin: General skin exam: normal color and wounds noted Wounds: wounds noted Other: as detailed above Neuro: Speech: normal speech Motor exam (neuro): 5/5 motor strength present throughout Sensory Exam: normal sensation Extrem: General: normal to inspection Psych: Mental Status: mental status grossly normal Affect: normal affect Objective Data Vital Signs Vital Signs: Vital Signs - 24 hr 01/22/23 12:00 01/22/23 16:00 01/22/23 14:00 Temperature 36.5 C Pulse Rate 63 68 63 Respiratory Rate 16 Blood Press
== END 2023-01-23 09:45 | disposition short-term general hospital (02) ==
LOC: ANHED 21:47 → ANH3MED 22:35
PROVIDERS: Nurse Practitioner; Admitting Provider Internal Medicine; Emergency Provider Preventive Medicine Aerospace Medicine; PCP Family Medicine; Visit Provider Internal Medicine
DX: R55 Syncope and collapse (principal); I35.0 Nonrheumatic aortic (valve) stenosis; R77.8 Other specified abnormalities of plasma proteins; S02.5XXA Fracture of tooth (traumatic), initial encounter for closed fracture; S01.511A Laceration without foreign body of lip, initial encounter; S80.212A Abrasion, left knee, initial encounter; W18.30XA Fall on same level, unspecified, initial encounter; Z23 Encounter for immunization; S80.211A Abrasion, right knee, initial encounter; R51.9 Headache, unspecified; R94.31 Abnormal electrocardiogram [ECG] [EKG]; R91.8 Other nonspecific abnormal finding of lung field; F10.90 Alcohol use, unspecified, uncomplicated; F17.210 Nicotine dependence, cigarettes, uncomplicated; Z79.899 Other long term (current) drug therapy
CPT/HCPCS: 12011; 36415; 70450; 70486; 71045; 72125; 80053; 83735; 84484; 85025; 85610; 90471; 90715; 93005; 96365; 96375; 99285; A9270; G0378; J0131; J2270; J2405; J7030